=== PATIENT | female | born 1940 | race Asian ===

== ENCOUNTER 2022-02-13 11:24 | Emergency (ER) | payer MEDICARE, BC, SELFPAY ==
[2022-02-13 11:34] VITALS: BP 190/106; PULSE 67; RESP 15; TEMP 36.1; O2SAT 100; BMI 20.6
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
--- NOTE | 2022-02-13 15:13 | DI.CT.S_ITS ---
PROCEDURE: CT HEAD/BRAIN WO CON INDICATIONS: fall on Saturday, persistent headache, neck pain, no asa TECHNIQUE: Noncontrast 4.5 mm thick angled axial sections acquired from the foramen magnum to the vertex, with coronal and sagittal reformats. For radiation dose reduction, the following was used: automated exposure control, adjustment of mA and/or kV according to patient size. COMPARISON: None. FINDINGS: Image quality: Excellent. CSF spaces: Basal cisterns are patent. No extra-axial fluid collections. The ventricles are symmetric in size and shape. Brain: No intracranial bleeds or masses. There is cerebral volume loss for age, with resultant ventricular and sulcal prominence. There are periventricular and deep white matter chronic small vessel ischemic changes. There is intracranial internal carotid artery atherosclerosis. Skull and face: Calvarium and visualized facial bones appear intact, without suspicious lesions. Sinuses: Visualized sinuses and mastoids are clear. IMPRESSION: No acute intracranial finding. Dictated by: Tyler Dukes M.D. on 02/13/2022 at 15:30 Approved by: Tyler Dukes M.D. on 02/13/2022 at 15:31
--- NOTE | 2022-02-13 15:26 | DI.CT.S_ITS ---
PROCEDURE: CT CERVICAL SPINE WO CON INDICATIONS: fall on Saturday, persistent headache, neck pain, no asa TECHNIQUE: Noncontrast 3 mm thick sections acquired from the skull base to the T4 level. Sagittal and coronal reformats were then constructed. For radiation dose reduction, the following was used: automated exposure control, adjustment of mA and/or kV according to patient size. COMPARISON: None. FINDINGS: Degenerative anterolisthesis C4 on C5 and C5 on C6 measuring approximately 2 millimeters at both levels. Normal cervical spine vertebral body height and alignment. No suspicious lytic or blastic osseous lesion. Overall mild multilevel multifactorial degenerative changes. Regional soft tissues demonstrate no acute finding. IMPRESSION: No CT evidence of acute traumatic cervical spine injury. Dictated by: Tyler Dukes M.D. on 02/13/2022 at 15:31 Approved by: Tyler Dukes M.D. on 02/13/2022 at 15:40
[2022-02-13 16:09] VITALS: BP 219/117; PULSE 77; RESP 16; O2SAT 98
== END 2022-02-13 16:09 | disposition home or self-care (01) ==
PROVIDERS: Emergency Provider Emergency Medicine
DX: S06.0X9A Concussion with loss of consciousness of unspecified duration, initial encounter (principal); M54.2 Cervicalgia; R51.9 Headache, unspecified; W19.XXXA Unspecified fall, initial encounter
CPT/HCPCS: 70450; 72125; 99281; 99284